=== PATIENT | female | born 2005 | race African-American/Black ===

== ENCOUNTER 2025-06-17 22:32 | Emergency (ER) | payer OTHER ==
[2025-06-17 23:01] VITALS: BP 116/72; TEMP 97.5; O2SAT 99
== END 2025-06-18 00:06 | disposition home or self-care (01) ==
LOC: M ED 22:32
DX: F43.0 Acute stress reaction (principal); F41.9 Anxiety disorder, unspecified; F17.200 Nicotine dependence, unspecified, uncomplicated; F12.10 Cannabis abuse, uncomplicated; F10.10 Alcohol abuse, uncomplicated; Z91.09 Other allergy status, other than to drugs and biological substances